=== PATIENT | male | born 1995 | race Caucasian/White ===

== ENCOUNTER 2018-08-24 20:16 | Emergency (ER) | payer OTHER ==
[~2018-08-24] VITALS: Ht 177.8 cm; Wt 77.3 kg
[2018-08-24 21:09] LABS: INFLUENZA A AMPLIFICATION POSITIVE (NEGATIVE); INFLUENZA B AMPLIFICATION NEGATIVE (NEGATIVE)
[2018-08-24 23:36] VITALS: BP 130/60
== END 2018-08-24 23:47 | disposition home or self-care (01) ==
LOC: M ED 20:16
DX: J09.X9 Influenza due to identified novel influenza A virus with other manifestations (principal); F17.200 Nicotine dependence, unspecified, uncomplicated

== ENCOUNTER 2019-01-04 06:50 | Emergency (ER) | payer OTHER ==
[~2019-01-04] VITALS: Ht 177.8 cm; Wt 78.4 kg
[2019-01-04] MEDS ORDERED: IBUP200C28 PO (06:54)
[2019-01-04] MEDS ORDERED: diphenhydrAMINE INJ 50MG/ML VIAL (J1200) IV ONE (09:30)
[2019-01-04] MEDS ORDERED: KETOROLAC 30 MG/ML VIAL (J1885) IV ONE (09:30)
[2019-01-04] MEDS ORDERED: METOCLOPRAMIDE INJ 10MG/2ML VIAL (J2765) IV ONE (09:30)
[2019-01-04] MEDS ORDERED: NS 1,000 ML IV ONE (09:30)
[2019-01-04 09:42] LABS: MEAN CORPUSCULAR HEMOGLOBIN 29.1 pg (27.0-33.0); MEAN CORPUSCULAR HGB CONC 33.3 g/dl (32.0-36.5); MEAN CORPUSCULAR VOLUME 87.3 fl (80.0-96.0); PLATELET COUNT, AUTOMATED 157 10^3/uL (150-450); WHITE BLOOD COUNT 7.7 10^3/uL (4.0-10.0)
[2019-01-04 10:52] VITALS: BP 113/63
[2019-01-05] MEDS ORDERED: CETACAINE SPRAY 5GM As Ordered ONE (04:51)
[2019-01-05] MEDS ORDERED: SILVER NITRATE APPLICATOR As Ordered ONE (04:52)
== END 2019-01-04 11:00 | disposition home or self-care (01) ==
LOC: M ED 06:50
DX: G44.209 Tension-type headache, unspecified, not intractable (principal); J30.2 Other seasonal allergic rhinitis; Z72.0 Tobacco use; Z82.0 Family history of epilepsy and other diseases of the nervous system
CPT/HCPCS: 85027; 96374; 96375; 99284; J1200; J1885; J2765

== ENCOUNTER 2021-03-18 13:24 | Emergency (ER) | payer OTHER ==
[~2021-03-18] VITALS: Ht 175.3 cm; Wt 88.4 kg
[2021-03-18 13:24] VITALS: BP 135/63
[~2021-03-18 13:24] MED LIST: IBUP200C28 PO
[2021-03-18 15:34] LABS: GC DNA AMPLIFICATION NEGATIVE (NEGATIVE)
[2021-03-18] MEDS ORDERED: LIDOCAINE 1% SDV 5ML VIAL DILUENT ONE (18:20)
[2021-03-18] MEDS ORDERED: AZITHROMYCIN 250MG TABLET PO ONE (18:20)
[2021-03-18] MEDS ORDERED: cefTRIAXone SOD 250MG VIAL (J0696 PER 250MG) IM ONE (18:20)
--- OUTSIDE RECORDS SUMMARY | 2021-03-18 18:41 | CCD ---
Author Author [facility] Organization [facility] Address Unknown Phone Unavailable Support Name Relationship Address Phone JALEEL CHERY Next Of Kin - -, - - [facility] Next Of Kin [address] [place] [address] Unavailable KAMILAH CHERY Next Of Kin [address] [place] [address] Re-disclosure Warning The records that you are about to access may contain information from federally-assisted alcohol or drug abuse programs. If such information is present, then the following federally mandated warning applies: This information has been disclosed to you from records protected by federal confidentiality rules (42 CFR part 2). The federal rules prohibit you from making any further disclosure of this information unless further disclosure is expressly permitted by the written consent of the person to whom it pertains or as otherwise permitted by 42 CFR part 2. A general authorization for the release of medical or other information is NOT sufficient for this purpose. The Federal rules restrict any use of the information to criminally investigate or prosecute any alcohol or drug abuse patient.The records that you are about to access may contain highly sensitive health information, the redisclosure of which is protected by Article 27-F of the [facility] Public Health law. If you continue you may have access to information: Regarding HIV / AIDS; Provided by facilities licensed or operated by the [facility] Office of Mental Health; or Provided by the [facility] Office for People With Developmental Disabilities. If such information is present, then the following [facility] mandated warning applies: This information has been disclosed to you from confidential records which are protected by state law. State law prohibits you from making any further disclosure of this information without the specific written consent of the person to whom it pertains, or as otherwise permitted by law. Any unauthorized further disclosure in violation of state law may result in a fine or prison sentence or both. A general authorization for the release of medical or other information is NOT sufficient authorization for further disc losure. Medications No Information Insurance Providers Payer name Policy type / Coverage type Policy ID Covered alliance party ID Covered alliance party's relationship to walker Policy Walker Plan Information [facility] [employer] [employer] [id number] Problems, Conditions, and Diagnoses No Information Surgeries/Procedures No Information Results No Information Social History No Information
== END 2021-03-18 19:10 | disposition home or self-care (01) ==
LOC: M ED 13:24
DX: Z20.2 Contact with and (suspected) exposure to infections with a predominantly sexual mode of transmission (principal)
CPT/HCPCS: 81001; 87491; 87591; 96372; 99282; J0696

== ENCOUNTER 2022-06-24 09:45 | Emergency (ER) | payer OTHER ==
[~2022-06-24] VITALS: Ht 205.7 cm; Wt 93.3 kg
[2022-06-24 16:26] LABS: BASO % 0.6 % (0.0-1.0); EOS # 0.2 10^3/uL (0.0-0.5); EOS % 2.4 % (0.0-3.0); HEMATOCRIT 47.9 % (42.0-52.0); HEMOGLOBIN 16.2 g/dl (13.5-17.5); LYMPH # 2.3 10^3/uL (1.5-5.0); LYMPH % 31.3 % (24.0-44.0); MEAN CORPUSCULAR HEMOGLOBIN 29.5 pg (27.0-33.0); MEAN CORPUSCULAR HGB CONC 33.8 g/dl (32.0-36.5); MEAN CORPUSCULAR VOLUME 87.1 fl (80.0-96.0); MONO # 0.6 10^3/uL (0.0-0.8); MONO % 8.4 % (2.0-8.0); NEUTROPHILS # 4.1 10^3/uL (1.5-8.5); NEUTROPHILS % 56.9 % (36.0-66.0); PLATELET COUNT, AUTOMATED 196 10^3/uL (150-450); WHITE BLOOD COUNT 7.2 10^3/uL (4.0-10.0)
[2022-06-24 17:12] LABS: ALKALINE PHOSPHATASE 51 U/L (46-116); ALT/SGPT 17 U/L (7.0-40); AST/SGOT 21 U/L (<34); BILIRUBIN,DIRECT 0.2 MG/DL (<0.4); BILIRUBIN,TOTAL 0.7 MG/DL (0.3-1.2); BLOOD UREA NITROGEN 12 MG/DL (9-23); CARBON DIOXIDE LEVEL 32 MMOL/L (20-31); CHLORIDE LEVEL 103 MMOL/L (98-107); CPK CREATINE PHOSPHOKINASE 127 U/L (46-171); CREATININE FOR GFR 1.15 MG/DL (0.70-1.30); GLOMERULAR FILTRATION RATE > 60.0 (>60); GLUCOSE, FASTING 57 MG/DL (60-100); POTASSIUM SERUM 4.1 MMOL/L (3.5-5.1); SODIUM LEVEL 141 MMOL/L (136-145); TOTAL PROTEIN 7.5 G/DL (5.7-8.2)
[2022-06-24 18:21] LABS: AMPHETAMINES LEVEL URINE NEGATIVE (NEGATIVE); BARBITURATES URINE NEGATIVE (NEGATIVE); BENZODIAZEPINES URINE NEGATIVE (NEGATIVE); CANNABINOIDS URINE NEGATIVE (NEGATIVE); COCAINE METABOLITE URINE NEGATIVE (NEGATIVE); METHADONE URINE NEGATIVE (NEGATIVE); OPIATES URINE NEGATIVE (NEGATIVE); PHENCYCLIDINE URINE NEGATIVE (NEGATIVE)
[2022-06-24 18:26] VITALS: BP 127/69
== END 2022-06-24 18:37 | disposition home or self-care (01) ==
LOC: M ED 09:45
DX: R55 Syncope and collapse (principal); E16.2 Hypoglycemia, unspecified; F17.290 Nicotine dependence, other tobacco product, uncomplicated